=== PATIENT | female | born 1970 | race Two or more races ===

== ENCOUNTER 2016-05-15 17:37 | Emergency (ER) | payer OTHER ==
[2016-05-15 17:59] VITALS: BP 133/70; PULSE 92; RESP 18; TEMP 98.8; O2SAT 98
--- NOTE | 2016-05-15 18:18 | UCPHY ---
H & P Patient Type: Established HPI/ROS: CHIEF COMPLAINT: Mouth pain, tongue pain HISTORY OF PRESENT ILLNESS: Patient has a "poking" sensation on the tongue and in the mouth. This has been present for 2 months. It has been there persistently. It does wax and wane for [id number]. No fever chills. No difficulty swallowing. No painful swallowing. No difficulty breathing. No sore throat or neck pain. No cough, congestion, runny nose. No shortness of breath. No illness otherwise. Seen by her clinic on with no definitive diagnosis. She is here for 2nd opinion. No other associated complaints or modifying factors. REVIEW OF SYSTEMS: Ten systems reviewed and are negative unless otherwise noted in the HPI PERTINENT MEDICAL HISTORY: EXAMINATION General Appearance: Alert, no distress Head: normocephalic, atraumatic Eyes: Pupils equal and round, no conjunctival pallor or injection ENT, Mouth: Mucous membranes moist. Geographic tongue noted. Mild erythema of the buccal mucosa. No lesions. No edema of the posterior pharynx. No erythema of the posterior pharynx. No abnormality of the floor of the mouth. Airway is widely patent. Neck: Normal inspection, supple, non-tender. No lymphadenopathy. DIFFERENTIAL DIAGNOSES: Including but not limited to geographic tongue, mucositis, aphthous stomatitis, aphthous ulcer MDM: 6:15 p.m. Geographic tongue with aphthous ulcer. No evidence of pharyngitis. No evidence of Antoine's angina or pharyngitis. Her airway is widely patent. Discharged home with symptomatic medications. I will refer to ENT for definitive care should she wish to do so. We will try Peridex for her as prescribed. She is comfortable this plan and discharged home in stable condition. SUPERVISION: This patient was independently evaluated without direct examination by the attending physician. Case was discussed with attending physician. Smoking Status: Never smoked Constitutional: Initial Vital Signs Temperature (C) 98.8 F 05/15/16 17:57 Heart Rate 92 05/15/16 17:57 Respiratory Rate 18 05/15/16 17:57 Blood Pressure 133/70 H 05/15/16 17:57 O2 Sat (%) 98 05/15/16 17:57 O2 Delivery Mode Room Air Allergies/Adverse Reactions: No Known Allergies Allergy (Verified 12/31/15 17:59) Home Medications: Medication Instructions Recorded NO HOME MEDS 10/27/09 Chlorhexidine Gluconate [Perisol] 15 ml MM TID PRN #1 btl 05/15/16 MDM/Departure - Depart Disposition: Home, Routine, Self-Care Clinical Impression: Geographic tongue, Aphthous stomatitis Condition: Good Instructions: Oral Mucositis (ED) Additional Instructions: Peridex mouth rinse as needed as prescribed. Follow up with ENT for further care if needed. Prescriptions: Chlorhexidine Gluconate [Perisol] 15 ml MM TID PRN #1 btl PRN Reason: Mucositis, Mouth Pain Referrals: Yazmin Silveira MD [Medical Doctor] - As per Instructions Print Language: Irish - PQRS PQRS Measurement: Not applicable
== END 2016-05-15 18:37 | disposition home or self-care (01) ==
LOC: CED 17:37
DX: K14.1 Geographic tongue (principal); K12.0 Recurrent oral aphthae
CPT/HCPCS: 99214-PO; G0463-PO